=== PATIENT | female | born 1995 | race Caucasian/White ===

== ENCOUNTER 2023-03-28 10:08 | Outpatient (OUT) | payer MEDICAID, SELFPAY ==
--- NOTE | 2023-03-28 10:09 | US_ITS ---
[address] [address] Patient Name: CATINA VELASQUEZ MRN: [id number] date: 1995 Sex: F Assigned Patient Location: [facility] Current Patient Location: [facility] Accession/Order Number: [id number] Exam Date: 03/28/2023 10:10 Report Date: 03/28/2023 10:59 At the request of: KRISHAN CAICEDO Procedure: US OB transvaginal EXAMINATION: US OB transvaginal HISTORY: MISSED MENSES COMPARISON: No relevant comparison available. FINDINGS: GESTATIONAL SAC: Present and normal appearing. YOLK SAC: Present and normal appearing. POLE: Present and normal appearing. CARDIAC: Present. UTERUS: Normal size and appearance. OVARIES: Right: Normal. Left: Normal. CERVIX: 3.6 cm in length and closed. CUL-DE-SAC: Normal. OTHER: None. AGE BY LMP: 11 weeks 1 day DANE BY LMP: 10/16/2023 AGE BY US CRL: 8 weeks 2 days DANE BY US CRL: 11/05/2023 US/US OB transvaginal IMPRESSION: 1. Single live intrauterine . Electronically authenticated by: CHAUNCEY GRESHAM Date: 03/28/2023 10:59
== END 2023-03-28 10:09 | disposition home or self-care (01) ==
LOC: NOMS 10:08
PROVIDERS: Visit Provider Obstetrics & Gynecology
DX: Z34.91 Encounter for supervision of normal pregnancy, unspecified, first trimester (principal); Z3A.08 8 weeks gestation of pregnancy; N92.6 Irregular menstruation, unspecified
CPT/HCPCS: 76817

== ENCOUNTER 2023-04-14 12:53 | Outpatient (OUT) | payer MEDICAID, SELFPAY ==
--- OUTSIDE RECORDS SUMMARY | 2023-04-14 11:27 | XMS_ITS | CCD ---
Author Name Unknown Address [address] [place] [address] Organization [facility] Care Team Providers Care Dishtank Operator Name Role Phone REQUEST, DR NONE LISTED Primary Care Unavaila ble SASCHA, DR NICKERSON Admitting Unavailable SASCHA, DR NICKERSON Consulting Unavailable SASCHA, DR NICKERSON Attending Unavailable ZIEBER, DR CHAUNCEY Persaud Consulting Unavailable SASCHA, DR NICKERSON Admitting Unavailable SASCHA, DR NICKERSON Consulting Unavailable SASCHA, DR NICKERSON Attending Unavailable REQUEST, NONE LISTED Primary Care Unavaila ble Allergies Allergy Classification Reported Allergen(s) Allergy Type Date of Onset Reaction(s) Facility (1 source) Amoxicillin Drug Allergy [facility] Repository (1 source) Corticosteroids Drug allergy (disorder) [facility] Repository (1 source) Penicillin Drug Allergy [facility] Repository (1 source) Probiotic AND Acidophilus Drug allergy (disorder) [facility] Repository Problems Problem Classification Problem Date Documented Date Episodic/Chronic Immunizations and screening for infectious disease (1 source) Encounter for screening for human papillomavirus (HPV); Translations: [ENC SCREENING HUMAN PAPILLOMAVIRUS] Onset: 01-12-2022 Episodic Menstrual disorders (5 sources) Excessive and frequent menstruation with regular cycle; Translations: [Dysmenorrhea, unspecified] Onset: 01-10-2022 Chronic Other screening for suspected conditions (not mental disorders or infectious disease) (4 sources) Encounter for screening for malignant neoplasm of cervix; Translations: [ENC SCREENING MALIG NEOPLASM CERV] Onset: 01-09-2022 Episodic Results Test Name Value Interpretation Reference Range Facility PAP ACOG PANEL 2: 21 to 29on 01-15-2022 . . Normal [facility] Comment on above: Result Comment: Perf ormed at: [facility] Performed By: #### [id number] #### [facility] [address] [place] [address] Dr. So Jorge Age Gdln ACOG Testing 21-29 [facility] Comment on above: Performed By: #### [id number] #### [facility] [address] [place] [address] Dr. So Jorge DIAGNOSIS: Comment [facility] Comment on above: Result Comment: NEGA TIVE FOR INTRAEPITHELIAL LESION OR MALIGNANCY. Performed at: [facility] Performed By: #### [id number] #### [facility] [address] [place] [address] Dr. So Jorge Methodology: Comment [facility] Comment on above: Result Comment: This liquid based ThinPrep(R) pap test was screened with the use of an image guided system. Performed at: [facility] Performed By: #### [id number] #### [facility] [address] [place] [address] Dr. So Jorge Note: Comment [facility] Comment on above: Result Comment: The Pap smear is a screening test designed to aid in the detection of premalignant and malignant conditions of the uterine cervix. It is not a diagnostic procedure and should not be used as the sole means of detecting cervical cancer. Both false-positive and false-negative reports do occur. . Performed at: [facility] Performed By: #### [id number] #### [facility] [address] [place] [address] Dr. So Jorge Performed by: Comment Normal [facility] Comment on above: Result Comment: Nicholas Sladivar, [employer] Craftsman (ASCP) Performed at: [facility] Performed By: #### [id number] #### [facility] [address] [place] [address] Dr. So Jorge Reflex Criteria: Comment [facility] Comment on above: Result Comment: The HPV DNA reflex criteria were not met with this specimen result therefore, no HPV testing was performed. . Performed at: [facility] Performed By: #### [id number] #### [facility] [address] [place] [address] Dr. So Jorge Specimen adequacy: Comment Normal [facility] Comment on above: Result Comment: Sati sfactory for evaluation. Endocervical and/or squamous metaplastic cells (endocervical component) are present. Performed at: [facility] Performed By: #### [id number] #### [facility] [address] [place] [address] Dr. So Jorge US PELVIS AND TRANSVAGon US PELVIS AND TRANSVAG EXAMINATION: US PELVIS AND TRANSVAG HISTORY: Dysmenorrhea COMPARISON: No relevant comparison available. TECHNIQUE: Transabdominal and transvaginal sonographic examination. FINDINGS: UTERUS: Normal size and appearance. Uterus size: 7.0 x 3.9 x 2.9 cm ENDOMETRIUM: Normal homogeneous appearance. Endometrial thickness: 5 mm RIGHT OVARY: Normal size and appearance. Duplex Doppler demonstrates normal waveform and flow; resistive index 0.6. Ovary size: 3.3 x 2.4 x 2.1 cm LEFT OVARY: Normal size and appearance. Duplex Doppler demonstrates normal waveform and flow; resistive index 0.5. Ovary size: 2.9 x 2.9 x 2.0 cm CUL-DE-SAC: Unremarkable. No significant free fluid. BLADDER: Unremarkable. OTHER: None. IMPRESSION: 1. Normal pelvic ultrasound. Electronically authenticated by: CHAUNCEY GRESHAM Date: 2022-01-11 07:14 Normal [facility] CBC AUTO DIFFon 01-10-2022 BASO # 0.1 103/ul Normal 0.0-0.1 [facility] Comment on above: Performed By: #### C BC #### [facility] [address] [place] [address] Dr. So Jorge Basophils/100 WBC (Bld) 0.8 % Normal 0.2-2.0 [facility] Comment on above: Performed By: #### C BC #### [facility] [address] [place] [address] Dr. So Jorge EO # 0.4 103/ul Normal 0.0-0.7 [facility] Comment on above: Performed By: #### C BC #### [facility] [address] [place] [address] Dr. So Jorge Eosinophils/100 WBC (Bld) 7.3 % Critically high 0.9-7.0 [facility] Comment on above: Performed By: #### C BC #### [facility] [address] [place] [address] Dr. So Jorge Erythrocyte distribution width (RBC) [Ratio] 11.9 % Normal 11.0-15.0 [facility] Comment on above: Performed By: #### C BC #### [facility] [address] [place] [address] Dr. So Jorge Hematocrit (Bld) [Volume fraction] 39.5 % Normal 36.0-48.0 [facility] Comment on above: Performed By: #### C BC #### [facility] [address] [place] [address] Dr. So Jorge Hemoglobin (Bld) [Mass/Vol] 12.9 g/dL Normal 12.0-16.0 [facility] Comment on above: Performed By: #### C BC #### [facility] [address] [place] [address] Dr. So Jorge IG # 0.03 10e3/ul Normal 0.00-0.03 [facility] Comment on above: Performed By: #### C BC #### [facility] [address] [place] [address] Dr. So Jorge IG % 0.5 % Normal 0.0-0.5 [facility] Comment on above: Performed By: #### C BC #### [facility] [address] [place] [address] Dr. So Jorge LYMPH # 1.7 103/ul Normal 1.2-3.8 [facility] Comment on above: Performed By: #### C BC #### [facility] [address] [place] [address] Dr. So Jorge Lymphocytes/100 WBC (Bld) 28.6 % Normal 20.5-60.0 [facility] Comment on above: Performed By: #### C BC #### [facility] [address] [place] [address] Dr. So Jorge MANUAL DIFF REQ NO Normal [facility] Comment on above: Performed By: #### C BC #### [facility] [address] [place] [address] Dr. So Jorge MCH (RBC) [Entitic mass] 29.7 pg Normal 26.7-34.0 [facility] Comment on above: Performed By: #### C BC #### [facility] [address] [place] [address] Dr. So Jorge MCHC (RBC) [Mass/Vol] 32.7 g/dL Normal 29.9-35.2 [facility] Comment on above: Performed By: #### C BC #### [facility] [address] [place] [address] Dr. So Jorge MCV (RBC) [Entitic vol] 91.0 fL Normal 81.0-99.0 [facility] Comment on above: Performed By: #### C BC #### [facility] [address] [place] [address] Dr. So Jorge MONO # 0.7 103/ul Normal 0.3-0.8 [facility] Comment on above: Performed By: #### C BC #### [facility] [address] [place] [address] Dr. So Jorge Monocytes/100 WBC (Bld) 11.1 % Normal 1.7-12.0 [facility] Comment on above: Performed By: #### C BC #### [facility] [address] [place] [address] Dr. So Jorge NEUT # 3.1 103/ul Normal 1.4-6.5 [facility] Comment on above: Performed By: #### C BC #### [facility] [address] [place] [address] Dr. So Jorge Neutrophils/100 WBC (Bld) 51.7 % Normal 43.0-75.0 [facility] Comment on above: Performed By: #### C BC #### [facility] [address] [place] [address] Dr. So Jorge Platelet mean volume (Bld) [Entitic vol] 10.0 fL Normal 9.5-13.5 [facility] Comment on above: Performed By: #### C BC #### [facility] [address] [place] [address] Dr. So Jorge PLT 328 103/ul Normal 150-450 [facility] Comment on above: Performed By: #### C BC #### [facility] [address] [place] [address] Dr. So Jorge RBC 4.34 106/ul Normal 4.20-5.40 [facility] Comment on above: Performed By: #### C BC #### [facility] [address] [place] [address] Dr. So Jorge WBC 6.1 103/ul Normal 4.0-11.0 [facility] Comment on above: Performed By: #### C BC #### [facility] [address] [place] [address] Dr. So Jorge FREE T4on 01-10-2022 Free T4 [Mass/Vol] 0.86 ng/dL Normal 0.76-1.46 [facility] Comment on above: Performed By: #### F T4 #### [facility] [address] [place] [address] Dr. So Jorge GLYCOHEMOGLOBIN A1Con 2021 ADA RECOMMENDATION SEE BELOW Normal [facility] Comment on above: Result Comment: ADA RECOMMENDED LIMIT 4.0 - 6.0 ADA THERAPEUTIC TARGET < 7.0 ACTION SUGGESTED > 7.0 Performed By: #### A 1C #### [facility] [address] [place] [address] Dr. So Jorge Glucose [Mass/Vol] 103 mg/dL Normal [facility] Comment on above: Performed By: #### A 1C #### [facility] [address] [place] [address] Dr. So Jorge HbA1c (Bld) [Mass fraction] 5.2 % Normal 4.5-6.2 [facility] Comment on above: Performed By: #### A 1C #### [facility] [address] [place] [address] Dr. So Jorge PROTIMEon 01-10-2022 INR Coag (PPP) [Relative time] 0.98 {INR} Normal [facility] Comment on above: Performed By: #### P TT, PT #### [facility] [address] [place] [address] Dr. So Jorge INR GUIDELINES SEE BELOW Normal [facility] Comment on above: Result Comment: JESUS RED INR: 2.0 - 3.0 CONDITIONS NOT LISTED BELOW 2.5 - 3.5 FOR PROSTHETIC HEART VALVE REPLACEMENT 2.5 - 3.5 RECURRENT THROMBOSIS Performed By: #### P TT, PT #### [facility] [address] [place] [address] Dr. So Jorge PT Coag (PPP) [Time] 10.6 s Normal 9.0-11.6 [facility] Comment on above: Performed By: #### P TT, PT #### [facility] [address] [place] [address] Dr. So Jorge PTTon 01-10-2022 aPTT Coag (Bld) [Time] 29.6 s Normal 22.3-36.2 [facility] Comment on above: Performed By: #### P TT, PT #### [facility] [address] [place] [address] Dr. So Jorge TSHon 01-10-2022 TSH 0.724 uIU/mL Normal 0.358-3.740 [facility] Comment on above: Performed By: #### T SH #### [facility] [address] [place] [address] Dr. So Jorge Encounters Encounter Date Encounter Type Care Provider Facility Start: 03-28-2023 End: 03-28-2023 ambulatory Not Available Start: 01-10-2022 End: 01-11-[address] NONE LISTED REQUEST Facility: Start: 01-09-2022 End: 01-09-[address] KRISHAN CAICEDO Facility: Payers Date Payer Category Payer Medicaid [id number] 1995 Unknown [id number] 1995 Unknown [id number] 1995 Unknown [id number] 1958 Unknown [id number] Summary Purpose Family History No Family History Records FoundNo Family History Records Found Advance Directives No Advanced Directives Records FoundNo Advanced Directives Records Found Additional Source Comments INFORMATION SOURCE (unrecogn ized section and content) DATE CREATED AUTHOR 01/18/2022 [facility] DATE CREATED AUTHOR AUTHOR'S POLLY ATROMA 03/30/2023 [facility] FOR RECORDS PERTAINING TO PATIENTS WHO ARE OR HAVE BEEN ENROLLED IN A CHEMICAL DEPENDENCY/SUBSTANCEABUSE PROGRAM, SOME INFORMATION MAY BE OMITTED. This clinical summary was aggregated from multiple sources. Caution should be exercised in using it in the provision of clinical care. This summary normalizes information from multiple sources, and as a consequence, information in this document may materially change the coding, format and clinical context of patient data. In addition, data may be omitted in some cases. CLINICAL DECISIONS SHOULD BE BASED ON THE PRIMARY CLINICAL RECORDS. [facility] [employer] provides no warranty or guarantee of the accuracy or completeness of information in this document.
[2023-04-14 13:25] LABS: Basophils Percent Auto 0.3 % (0.2-2.0); Eosinophils Absolute Auto 0.1 10^3/uL (0.0-0.7); Hematocrit 32.6 % (36.0-48.0); Hemoglobin 10.7 g/dL (12.0-16.0); Immature Granulocytes Abs Auto 0.03 10^3/uL (0.00-0.03); Immature Granulocytes Pct Auto 0.2 % (0.0-0.5); Lymphocytes Absolute Auto 2.2 10^3/uL (1.2-3.8); Lymphocytes Percent Auto 17.2 % (20.5-60.0); Mean Corpuscular HGB Conc 32.8 g/dL (29.9-35.2); Mean Corpuscular Hemoglobin 29.9 pg (26.7-34.0); Mean Corpuscular Volume 91.1 fL (81.0-99.0); Mean Platelet Volume 10.1 fL (9.5-13.5); Monocytes Absolute Auto 0.9 10^3/uL (0.3-0.8); Monocytes Percent Auto 7.1 % (1.7-12.0); Neutrophils Absolute Auto 9.5 10^3/uL (1.4-6.5); Neutrophils Percent Auto 74.2 % (43.0-75.0); Platelet Count 277 10^3/uL (150-450); Red Blood Count 3.58 10^6/uL (4.20-5.40); Red Cell Distribution Width 12.9 % (11.0-15.0); White Blood Count 12.8 10^3/uL (4.0-11.0)
[2023-04-14 15:11] LABS: Estimated Average Glucose 100 mg/dL; Glycohemoglobin A1C 5.1 % (4.5-6.2)
[2023-04-15 07:08] LABS: HCV Ab Non Reactive (Non Reactive); Rubella Antibodies, IgG 3.31 index (Immune >0.99)
[2023-04-15 08:12] LABS: HIV Ab/p24 Ag Screen Non Reactive (Non Reactive)
[2023-04-15 13:09] LABS: HBsAg Screen Negative (Negative); Rapid Plasma Reagin, Quant Non Reactive titer (NonRea<1:1)
== END 2023-04-14 12:54 | disposition home or self-care (01) ==
LOC: LAB 12:53
PROVIDERS: Visit Provider Obstetrics & Gynecology
DX: Z36.0 Encounter for antenatal screening for chromosomal anomalies (principal); N92.6 Irregular menstruation, unspecified
CPT/HCPCS: 36415; 83036; 85025; 86592; 86762; 86803; 86850; 86900; 86901; 87086; 87340; 87389

== ENCOUNTER 2023-04-17 19:40 | Outpatient (REF) | payer MEDICAID, SELFPAY ==
--- OUTSIDE RECORDS SUMMARY | 2023-04-17 19:44 | XMS_ITS | CCD ---
Author Name Unknown Address [address] [place] [address] Organization [facility] Care Team Providers Care Roadway Engineer Name Role Phone REQUEST, DR NONE LISTED Primary Care Unavaila ble SSACHA, DR NICKERSON Admitting Unavailable SASCHA, DR NICKERSON Consulting Unavailable SASCHA, DR NICKERSON Attending Unavailable ZIEBER, DR CHAUNCEY Persaud Consulting Unavailable SASCHA, DR NICKERSON Admitting Unavailable SASCHA, DR NICKERSON Consulting Unavailable SASCHA, DR NICKERSON Attending Unavailable REQUEST, NONE LISTED Primary Care Unavaila ble Allergies Allergy Classification Reported Allergen(s) Allergy Type Date of Onset Reaction(s) Facility (1 source) Amoxicillin Drug Allergy [facility] Repository (1 source) Corticosteroids Drug allergy (disorder) [facility] (1 source) Penicillin Drug Allergy [facility] (1 source) Probiotic AND Acidophilus Drug allergy (disorder) [facility] Problems Problem Classification Problem Date Documented [...] to 29on 01-15-2022 . . Normal [facility] Comment on above: Result Comment: Perf ormed at: [facility] Performed By: #### [id number] #### [facility] [address] [place] [address] Dr. So Jorge Age Gdln ACOG Testing 21-29 [facility] Comment on above: Performed By: #### [id number] #### [facility] [address] [place] [address] Dr. So Jorge DIAGNOSIS: Comment [facility] Comment on above: Result Comment: NEGA TIVE FOR INTRAEPITHELIAL LESION OR MALIGNANCY. Performed at: [facility] Performed By: #### [id number] #### [facility] [address] [place] [address] Dr. So Jorge Methodology: Comment [facility] Comment on above: Result Comment: This liquid based ThinPrep(R) pap test was screened with the use of an image guided system. Performed at: [facility] Performed By: #### [id number] #### [facility] [address] [place] [address] Dr. So Jorge Note: Comment [facility] Comment on above: Result Comment: The Pap smear is a screening test designed to aid in the detection of premalignant and malignant conditions of the uterine cervix. It is not a diagnostic procedure and should not be used as the sole means of detecting cervical cancer. Both false-positive and false-negative reports do occur. . Performed at: [facility] Performed By: #### [id number] #### [facility] [address] [place] [address] Dr. So Jorge Performed by: Comment Normal [facility] Comment on above: Result Comment: Nicholas Saldivar, Egg Processing Supervisor (ASCP) Performed at: [facility] Performed By: #### [id number] #### [facility] [address] [place] [address] Dr. So Jorge Reflex Criteria: Comment [facility] Comment on above: Result Comment: The HPV DNA reflex criteria were not met with this specimen result therefore, no HPV testing was performed. . Performed at: [facility] Performed By: #### [id number] #### [facility] [address] [place] [address] Dr. So Jorge Specimen adequacy: Comment Normal [facility] Comment on above: Result Comment: Sati sfactory for evaluation. Endocervical and/or squamous metaplastic cells (endocervical component) are present. Performed at: [facility] Performed By: #### [id number] #### [facility] [address] [place] [address] Dr. So Jorge US PELVIS AND TRANSVAGon [...] by: CHAUNCEY GRESHAM Date: 2022-01-11 07:14 Normal [facility] CBC AUTO DIFFon 01-10-2022 BASO # 0.1 103/ul Normal 0.0-0.1 [facility] Comment on above: Performed By: #### C BC #### [facility] [address] [place] [address] Dr. So Jorge Basophils/100 WBC (Bld) 0.8 % Normal 0.2-2.0 [facility] Comment on above: Performed By: #### C BC #### [facility] [address] [place] [address] Dr. So Jorge EO # 0.4 103/ul Normal 0.0-0.7 [facility] Comment on above: Performed By: #### C BC #### [facility] [address] [place] [address] Dr. So Jorge Eosinophils/100 WBC (Bld) 7.3 % Critically high 0.9-7.0 [facility] Comment on above: Performed By: #### C BC #### [facility] [address] [place] [address] Dr. So Jorge Erythrocyte distribution width (RBC) [Ratio] 11.9 % Normal 11.0-15.0 [facility] Comment on above: Performed By: #### C BC #### [facility] [address] [place] [address] Dr. So Jorge Hematocrit (Bld) [Volume fraction] 39.5 % Normal 36.0-48.0 [facility] Comment on above: Performed By: #### C BC #### [facility] [address] [place] [address] Dr. So Jorge Hemoglobin (Bld) [Mass/Vol] 12.9 g/dL Normal 12.0-16.0 [facility] Comment on above: Performed By: #### C BC #### [facility] [address] [place] [address] Dr. So Jorge IG # 0.03 10e3/ul Normal 0.00-0.03 [facility] Comment on above: Performed By: #### C BC #### [facility] [address] [place] [address] Dr. So Jorge IG % 0.5 % Normal 0.0-0.5 [facility] Comment on above: Performed By: #### C BC #### [facility] [address] [place] [address] Dr. So Jorge LYMPH # 1.7 103/ul Normal 1.2-3.8 [facility] Comment on above: Performed By: #### C BC #### [facility] [address] [place] [address] Dr. So Jorge Lymphocytes/100 WBC (Bld) 28.6 % Normal 20.5-60.0 [facility] Comment on above: Performed By: #### C BC #### [facility] [address] [place] [address] Dr. So Jorge MANUAL DIFF REQ NO Normal [facility] Comment on above: Performed By: #### C BC #### [facility] [address] [place] [address] Dr. So Jorge MCH (RBC) [Entitic mass] 29.7 pg Normal 26.7-34.0 [facility] Comment on above: Performed By: #### C BC #### [facility] [address] [place] [address] Dr. So Jorge MCHC (RBC) [Mass/Vol] 32.7 g/dL Normal 29.9-35.2 [facility] Comment on above: Performed By: #### C BC #### [facility] [address] [place] [address] Dr. So Jorge MCV (RBC) [Entitic vol] 91.0 fL Normal 81.0-99.0 [facility] Comment on above: Performed By: #### C BC #### [facility] [address] [place] [address] Dr. So Jorge MONO # 0.7 103/ul Normal 0.3-0.8 [facility] Comment on above: Performed By: #### C BC #### [facility] [address] [place] [address] Dr. So Jorge Monocytes/100 WBC (Bld) 11.1 % Normal 1.7-12.0 [facility] Comment on above: Performed By: #### C BC #### [facility] [address] [place] [address] Dr. So Jorge NEUT # 3.1 103/ul Normal 1.4-6.5 [facility] Comment on above: Performed By: #### C BC #### [facility] [address] [place] [address] Dr. So Jorge Neutrophils/100 WBC (Bld) 51.7 % Normal 43.0-75.0 [facility] Comment on above: Performed By: #### C BC #### [facility] [address] [place] [address] Dr. So Jorge Platelet mean volume (Bld) [Entitic vol] 10.0 fL Normal 9.5-13.5 [facility] Comment on above: Performed By: #### C BC #### [facility] [address] [place] [address] Dr. So Jorge PLT 328 103/ul Normal 150-450 [facility] Comment on above: Performed By: #### C BC #### [facility] [address] [place] [address] Dr. So Jorge RBC 4.34 106/ul Normal 4.20-5.40 [facility] Comment on above: Performed By: #### C BC #### [facility] [address] [place] [address] Dr. So Jorge WBC 6.1 103/ul Normal 4.0-11.0 [facility] Comment on above: Performed By: #### C BC #### [facility] [address] [place] [address] Dr. So Jorge FREE T4on 01-10-2022 Free T4 [Mass/Vol] 0.86 ng/dL Normal 0.76-1.46 [facility] Comment on above: Performed By: #### F T4 #### [facility] [address] [place] [address] Dr. So Jorge GLYCOHEMOGLOBIN A1Con 2021 ADA RECOMMENDATION SEE BELOW Normal [facility] Comment on above: Result Comment: ADA RECOMMENDED LIMIT 4.0 - 6.0 ADA THERAPEUTIC TARGET < 7.0 ACTION SUGGESTED > 7.0 Performed By: #### A 1C #### [facility] [address] [place] [address] Dr. So Jorge Glucose [Mass/Vol] 103 mg/dL Normal [facility] Comment on above: Performed By: #### A 1C #### [facility] [address] [place] [address] Dr. So Jorge HbA1c (Bld) [Mass fraction] 5.2 % Normal 4.5-6.2 [facility] Comment on above: Performed By: #### A 1C #### [facility] [address] [place] [address] Dr. So Jorge PROTIMEon 01-10-2022 INR Coag (PPP) [Relative time] 0.98 {INR} Normal [facility] Comment on above: Performed By: #### P TT, PT #### [facility] [address] [place] [address] Dr. So Jorge INR GUIDELINES SEE BELOW Normal [facility] Comment on above: Result Comment: JESUS RED INR: 2.0 - 3.0 CONDITIONS NOT LISTED BELOW 2.5 - 3.5 FOR PROSTHETIC HEART VALVE REPLACEMENT 2.5 - 3.5 RECURRENT THROMBOSIS Performed By: #### P TT, PT #### [facility] [address] [place] [address] Dr. So Jorge PT Coag (PPP) [Time] 10.6 s Normal 9.0-11.6 [facility] Comment on above: Performed By: #### P TT, PT #### [facility] [address] [place] [address] Dr. So Jorge PTTon 01-10-2022 aPTT Coag (Bld) [Time] 29.6 s Normal 22.3-36.2 [facility] Comment on above: Performed By: #### P TT, PT #### [facility] [address] [place] [address] Dr. So Jorge TSHon 01-10-2022 TSH 0.724 uIU/mL Normal 0.358-3.740 [facility] Comment on above: Performed By: #### T SH #### [facility] [address] [place] [address] Dr. So Jorge Encounters Encounter Date Encounter Type Care Provider Facility Start: 03-28-2023 End: 03-28-2023 ambulatory Not Available Start: 01-10-2022 End: 01-11-[address] NONE LISTED REQUEST Facility: Start: 01-09-2022 End: 01-09-[address] KRISHAN CAICEDO Facility: Payers Date Payer Category Payer Medicaid [id number] 1995 Unknown [id number] 1995 Unknown [id number] 1996 Unknown [id number] 1959 Unknown [id number] Summary Purpose Family History No Family History Records FoundNo Family History Records Found Advance Directives No Advanced Directives Records FoundNo Advanced Directives Records Found Additional Source Comments INFORMATION SOURCE (unrecogn ized section and content) DATE CREATED AUTHOR 01/18/2022 [facility] DATE CREATED AUTHOR AUTHOR'S POLLY ATROMA 03/30/2023 [facility] FOR RECORDS PERTAINING TO PATIENTS WHO [...] BE BASED ON THE PRIMARY CLINICAL RECORDS. [facility] [employer] provides no warranty or guarantee of the accuracy or completeness of information in this document.
[2023-04-22 15:08] LABS: Age Gdln ACOG Testing Note (.); IGP, rfx Aptima HPV ASCU Note (.)
== END 2023-04-17 19:41 | disposition home or self-care (01) ==
LOC: LAB 19:40
PROVIDERS: Visit Provider Obstetrics & Gynecology
DX: Z01.419 Encounter for gynecological examination (general) (routine) without abnormal findings (principal)
CPT/HCPCS: G0145

== ENCOUNTER 2023-04-21 06:30 | Outpatient (REF) | payer BC, SELFPAY ==
--- OUTSIDE RECORDS SUMMARY | 2023-04-23 10:03 | XMS_ITS | CCD ---
Author Name Unknown Address [address] [place] [address] Organization [facility] Care Team Providers [employer] Principal Name Role Phone REQUEST, DR NONE LISTED Primary Care Unavaila ble SASCHA, DR NICKERSON Admitting Unavailable SASCHA, DR NICKERSON Consulting Unavailable SASCHA, DR NICKERSON Attending Unavailable ZIEBER, DR CHAUNCEY Persaud Consulting Unavailable SASCHA, DR NICKERSON Admitting Unavailable SASCHA, DR NICKERSON Consulting Unavailable SASCHA, DR NICKERSON Attending Unavailable REQUEST, NONE LISTED Primary Care Unavaila ble NO PCP, NO PCP Primary Care Unavailable GOSIA WOODARD Attending Unavailable SASCHAKRISHAN Attending Unavailable SASCHA, KRISHAN Attending Unavailable Allergies Allergy Classification Reported Allergen(s) Allergy Type Date of Onset Reaction(s) Facility (2 sources) Amoxicillin; Translations: [AMOXICILLIN] Drug Allergy 3 [facility] (1 source) Corticosteroids Drug allergy (disorder) [facility] (1 source) Penicillin Drug Allergy [facility] (1 source) Probiotic AND Acidophilus Drug allergy (disorder) [facility] (1 source) Penicillins; Translations: [PENICILLINS] Propensity to adverse reactions to drug (disorder) [facility] (1 source) predniSONE; Translations: [PREDNISONE] Drug Allergy 8 [facility] Problems Problem Classification Problem Date Documented Date Episodic/Chronic Hemorrhage during ; abruptio placenta; placenta previa (2 sources) Threatened ; Translations: [Antepartum hemorrhage, unspecified, unspecified trimester] Onset: 04-19-2023 Episodic Immunizations and screening for infectious disease (1 [...] SCREENING MALIG NEOPLASM CERV] Onset: 01-09-2022 Episodic Unclassified (1 source) Vaginal Bleeding - Onset: 04-19-2023 Unclassified (1 source) Vaginal Bleeding & Clotting - 11 wks Onset: 04-19-2023 Results Test Name Value Interpretation Reference Range Facility CBC AND AUTO DIFFon 04-19-19 ABSOLUTE BASOPHIL 0.0 X10E9/L Normal 0.0-0.2 [facility] Comment on above: Performed By: #### C ISABEL ELIZONDO, #### [facility] ([id number]) [address] [place] [address] 19054 ABSOLUTE NEUTROPHIL 11.0 X10E9/L High 1.5-6.6 [facility] Comment on above: Performed By: #### Nerissa ELIZONDO CMP, #### [facility] ([id number]) [address] [place] [address] 77886 Basophils/100 WBC (Bld) 0.3 % Normal [facility] Comment on above: Performed By: #### Nerissa ELIZONDO CMP, #### [facility] ([id number]) [address] [place] [address] 98080 Eosinophils (Bld) [#/Vol] 0.1 10*3/uL Normal 0.0-0.4 [facility] Comment on above: Performed By: #### Nerissa ELIZONDO CMP, #### [facility] ([id number]) [address] [place] [address] 56431 Eosinophils/100 WBC (Bld) 0.5 % Normal [facility] Comment on above: Performed By: #### C CARO, CMP, #### [facility] ([id number]) [address] [place] [address] 52540 Erythrocyte distribution width (RBC) [Ratio] 13.3 % Normal 11.5-15.0 [facility] Comment on above: Performed By: #### Nerissa ELIZONDO CMP, #### [facility] ([id number]) [address] [place] [address] 15117 Hematocrit (Bld) [Volume fraction] 31.9 % Low 35-47 [facility] Comment on above: Performed By: #### Nerissa ELIZONDO CMP, #### [facility] ([id number]) [address] [place] [address] 61452 Hemoglobin (Bld) [Mass/Vol] 11.0 g/dL Low 11.7-15.5 [facility] Comment on above: Performed By: #### Nerissa ELIZONDO [facility], #### [facility] ([id number]) [address] [place] [address] 15023 Lymphocytes (Bld) [#/Vol] 1.7 10*3/uL Normal 1.0-3.5 [facility] Comment on above: Performed By: #### Nerissa ELIZONDO CMP, #### [facility] ([id number]) [address] [place] [address] 81943 Lymphocytes/100 WBC (Bld) 12.1 % Normal [facility] Comment on above: Performed By: #### Nerissa ELIZONDO CMP, #### [facility] ([id number]) [address] [place] [address] 87667 MCH (RBC) [Entitic mass] 30.0 pg Normal 27-34 [facility] Comment on above: Performed By: #### Nerissa ELIZONDO CMP, #### [facility] ([id number]) [address] [place] [address] [place] [address] MCHC (RBC) [Mass/Vol] 34.4 g/dL Normal 32-36 [facility] Comment on above: Performed By: #### Nerissa ELIZONDO CMP, #### [facility] ([id number]) [address] [place] [address] 41989 MCV (RBC) [Entitic vol] 87 fL Normal 80-100 [facility] Comment on above: Performed By: #### Nerissa ELIZONDO CMP, #### [facility] ([id number]) [address] [place] [address] 28532 Monocytes (Bld) [#/Vol] 1.5 10*3/uL High 0-0.9 [facility] Comment on above: Performed By: #### Nerissa ELIZONDO CMP, #### [facility] ([id number]) [address] [place] [address] 85899 Monocytes/100 WBC (Bld) 10.3 % Normal [facility] Comment on above: Performed By: #### Nerissa ELIZONDO [facility], #### [facility] ([id number]) [address] [place] [address] 15518 Neutrophils/100 WBC (Bld) 76.8 % Normal [facility] Comment on above: Performed By: #### Nerissa ELIZONDO CMP, #### [facility] ([id number]) [address] [place] [address] 68586 Platelet mean volume (Bld) [Entitic vol] 8.0 fL Normal 7-12 [facility] Comment on above: Performed By: #### Nerissa ELIZONDO CMP, #### [facility] ([id number]) [address] [place] [address] 84722 Platelets (Bld) [#/Vol] 278 10*3/uL Normal 150-450 [facility] Comment on above: Performed By: #### C CARO, CMP, #### [facility] ([id number]) [address] [place] [address] 87275 RBC COUNT 3.65 X10E12/L Low 3.80-5.20 [facility] Comment on above: Performed By: #### C CARO, CMP, #### [facility] ([id number]) [address] [place] [address] 32234 WBC (Bld) [#/Vol] 14.3 10*3/uL High 4.0-11.0 [facility] Comment on above: Performed By: #### C CARO, CMP, #### [facility] ([id number]) [address] [place] [address] 38112 COMPREHENSIVE METABOLIC PANE Iker 04-19-2023 Albumin [Mass/Vol] 3.5 g/dL Normal 3.2-5.3 [facility] Comment on above: Performed By: #### C CARO, CMP, #### [facility] ([id number]) [address] [place] [address] 97055 ALP [Catalytic activity/Vol] 69 U/L Normal 39-130 [facility] Comment on above: Performed By: #### C BCA, CMP, #### [facility] ([id number]) [address] [place] [address] 07250 ALT [Catalytic activity/Vol] 9 U/L Normal 0-31 [facility] Comment on above: Performed By: #### C BCA, CMP, #### [facility] ([id number]) [address] [place] [address] 60531 Anion gap [Moles/Vol] 3 mmol/L Low 5-15 [facility] Comment on above: Performed By: #### C BCA, CMP, #### [facility] ([id number]) [address] [place] [address] 49714 AST [Catalytic activity/Vol] 14 U/L Normal 0-41 [facility] Comment on above: Performed By: #### C BCA, CMP, #### [facility] ([id number]) [address] [place] [address] [place] [address] Bilirubin [Mass/Vol] mg/dL Low 0.3-1.2 [facility] Comment on above: Performed By: #### C BCA, CMP, #### [facility] ([id number]) [address] [place] [address] 89477 Calcium [Mass/Vol] 8.4 mg/dL Low 8.5-10.5 [facility] Comment on above: Performed By: #### C BCA, CMP, #### [facility] ([id number]) [address] [place] [address] 59284 Chloride [Moles/Vol] 101 mmol/L Normal 98-109 [facility] Comment on above: Performed By: #### C BCA, CMP, #### [facility] ([id number]) [address] [place] [address] 74377 CO2 [Moles/Vol] 26 mmol/L Normal 22-32 [facility] Comment on above: Performed By: #### C BCA, CMP, #### [facility] ([id number]) [address] [place] [address] 05695 Creatinine [Mass/Vol] 0.62 mg/dL Normal 0.40-1.00 [facility] Comment on above: Result Comment: METH OD TRACEABLE TO IDMS STANDARD Performed By: #### C BCA, CMP, #### [facility] ([id number]) [address] [place] [address] 89959 eGFR (CKD-EPI) NON-RACE DEPENDENT >90 Normal >59 [facility] Comment on above: Result Comment: Reported eGFR is based on the CKD-EPI 2020 equation that does not use a race coefficient. Performed By: #### C ISABEL ELIZONDO, #### [facility] ([id number]) [address] [place] [address] 19703 Glucose [Mass/Vol] 96 mg/dL Normal 65-99 [facility] Comment on above: Performed By: #### C ISABEL ELIZONDO, #### [facility] ([id number]) [address] [place] [address] 67104 Potassium [Moles/Vol] 3.2 mmol/L Low 3.5-5.0 [facility] Comment on above: Performed By: #### C ISABEL ELIZONDO, #### [facility] ([id number]) [address] [place] [address] 22695 Protein [Mass/Vol] 7.3 g/dL Normal 6.0-8.0 [facility] Comment on above: Performed By: #### C CARO CMP, #### [facility] ([id number]) [address] [place] [address] 70265 Sodium [Moles/Vol] 130 mmol/L Low 134-146 [facility] Comment on above: Performed By: #### C CARO CMP, #### [facility] ([id number]) [address] [place] [address] 12183 Urea nitrogen [Mass/Vol] 9 mg/dL Normal 5-23 [facility] Comment on above: Performed By: #### C BCA, CMP, #### [facility] ([id number]) [address] [place] [address] 18373 HCG.beta subunit IA 3rd IS Q non 04-19-2023 [place] [address] m[IU]/mL Normal P [facility] Comment on above: Result Comment: NEW REFERENCE RANGE WEEKS (SINCE LMP) MIU/mL 3 WEEKS 5 - 50 4 WEEKS 5 - 426 5 WEEKS 18 - 7,340 6 WEEKS 1,080 - 56,500 7-8 WEEKS 7,650 - 229,000 9-12 WEEKS 25,700 - 288,000 13-16 WEEKS 13,300 - 254,000 17-24 WEEKS 4,060 - 165,400 25-40 WEEKS 3,640 - 117,000 MALES AND NON- FEMALES - <5 MIU/mL This test has been FDA approved for use in only. Elevated levels are not necessarily diagnostic for trophoblastic or nontrophoblastic neoplasms. Performed By: #### C BCA, [facility], [id number] #### [facility] ([id number]) [address] [place] [address] 31996 URN MACROSCOPIC NURon 2023 BILIRUBIN MATTHEW Negative Normal NEG [facility] Comment on above: Performed By: #### N UM #### [facility] ([id number]) [address] [place] [address] 01414 BLOOD/HGB MATTHEW Trace Abnormal NEG [facility] Comment on above: Performed By: #### N UM #### [facility] ([id number]) [address] [place] [address] 82488 GLUCOSE MATTHEW Negative Normal NEG [facility] Comment on above: Performed By: #### N UM #### [facility] ([id number]) [address] [place] [address] 80513 KETONES MATTHEW Negative Normal NEG [facility] Comment on above: Performed By: #### N UM #### [facility] ([id number]) [address] [place] [address] 11729 LEUKOCYTE ESTERASE MATTHEW Negative Normal NEG [facility] Comment on above: Performed By: #### N UM #### [facility] ([id number]) [address] [place] [address] 16905 NITRITE MATTHEW Negative Normal NEG [facility] Comment on above: Performed By: #### N UM #### [facility] ([id number]) [address] [place] [address] 56266 PH MATTHEW 6.0 Normal 5.0-8.5 [facility] Comment on above: Performed By: #### N UM #### [facility] ([id number]) [address] [place] [address] 74855 PROTEIN MATTHEW Negative Normal NEG [facility] Comment on above: Performed By: #### N UM #### [facility] ([id number]) [address] [place] [address] 66158 SPECIFIC GRAVITY MATTHEW >=1.030 Normal 1.003-1.035 [facility] Comment on above: Performed By: #### N UM #### [facility] ([id number]) [address] [place] [address] 96509 UROBILINOGEN MATTHEW 1.0 eu/dL Normal <1.1 [facility] Comment on above: Performed By: #### N UM #### [facility] ([id number]) [address] [place] [address] 06299 PAP ACOG PANEL 2: 21 to 29on 01-15-2022 . . [facility] Comment on above: Result Comment: Perf ormed at: [facility] Performed By: #### [id number] #### [facility] [address] [place] [address] Dr. So Jorge Age Gdln ACOG Testing - [facility] Comment on above: Performed By: #### [id number] #### [facility] [address] [place] [address] Dr. So Jorge DIAGNOSIS: Comment Normal [facility] Comment on above: Result Comment: NEGA TIVE FOR INTRAEPITHELIAL LESION OR MALIGNANCY. Performed at: [facility] Performed By: #### [id number] #### [facility] [address] [place] [address] Dr. So Jorge Methodology: Comment Normal [facility] Comment on above: Result Comment: This liquid based ThinPrep(R) pap test was screened with the use of an image guided system. Performed at: [facility] Performed By: #### [id number] #### [facility] [address] [place] [address] Dr. So Jorge Note: Comment Normal [facility] Comment on above: Result Comment: The Pap smear is a screening test designed to aid in the detection of premalignant and malignant conditions of the uterine cervix. It is not a diagnostic procedure and should not be used as the sole means of detecting cervical cancer. Both false-positive and false-negative reports do occur. . Performed at: [facility] Performed By: #### [id number] #### [facility] [address] [place] [address] Dr. So Jorge Performed by: Comment Normal [facility] Comment on above: Result Comment: Nicholas Saldivar, Database Consultant (ASCP) Performed at: [facility] Performed By: #### [id number] #### [facility] [address] [place] [address] Dr. So Jorge Reflex Criteria: Comment Normal [facility] Comment on above: Result Comment: The HPV DNA reflex criteria were not met with this specimen result therefore, no HPV testing was performed. . Performed at: [facility] Performed By: #### [id number] #### [facility] [address] [place] [address] Dr. So Jorge Specimen adequacy: Comment Normal [facility] Comment on above: Result Comment: Sati sfactory for evaluation. Endocervical and/or squamous metaplastic cells (endocervical component) are present. Performed at: [facility] Performed By: #### [id number] #### [facility] [address] [place] [address] Dr. So Jorge US PELVIS AND TRANSVAGon [...] by: CHAUNCEY GRESHAM Date: 2022-01-11 07:14 Normal [facility] CBC AUTO DIFFon 01-10-2022 BASO # 0.1 103/ul Normal 0.0-0.1 [facility] Comment on above: Performed By: #### C BC #### [facility] [address] [place] [address] Dr. So Jorge Basophils/100 WBC (Bld) 0.8 % Normal 0.2-2.0 [facility] Comment on above: Performed By: #### C BC #### [facility] [address] [place] [address] Dr. So Jorge EO # 0.4 103/ul Normal 0.0-0.[address] [facility] Comment on above: Performed By: #### C BC #### [facility] [address] [place] [address] Dr. So Jorge Eosinophils/100 WBC (Bld) 7.3 % Critically high 0.9-7.[address] [facility] Comment on above: Performed By: #### C BC #### [facility] [address] [place] [address] Dr. So Jorge Erythrocyte distribution width (RBC) [Ratio] 11.9 % Normal 11.0-15.[address] [facility] Comment on above: Performed By: #### C BC #### [facility] [address] [place] [address] Dr. So Jorge Hematocrit (Bld) [Volume fraction] 39.5 % Normal 36.0-48.[address] [facility] Comment on above: Performed By: #### C BC #### [facility] [address] [place] [address] Dr. So Jorge Hemoglobin (Bld) [Mass/Vol] 12.9 g/dL Normal 12.0-16.0 [facility] Comment on above: Performed By: #### C BC #### [facility] [address] [place] [address] Dr. So Jorge IG # 0.03 10e3/ul Normal 0.00-0.[address] [facility] Comment on above: Performed By: #### C BC #### [facility] [address] [place] [address] Dr. So Jorge IG % 0.5 % Normal 0.0-0.[address] [facility] Comment on above: Performed By: #### C BC #### [facility] [address] [place] [address] Dr. So Jorge LYMPH # 1.7 103/ul Normal 1.2-3.8 [facility] Comment on above: Performed By: #### C BC #### [facility] [address] [place] [address] Dr. oS Jorge Lymphocytes/100 WBC (Bld) 28.6 % Normal 20.5-60.0 [facility] Comment on above: Performed By: #### C BC #### [facility] [address] [place] [address] Dr. So Jorge MANUAL DIFF REQ NO Normal [facility] Comment on above: Performed By: #### C BC #### [facility] [address] [place] [address] Dr. So Jorge MCH (RBC) [Entitic mass] 29.7 pg Normal 26.7-34.[address] [facility] Comment on above: Performed By: #### C BC #### [facility] [address] [place] [address] Dr. So Jorge MCHC (RBC) [Mass/Vol] 32.7 g/dL Normal 29.9-35.2 [facility] Comment on above: Performed By: #### C BC #### [facility] [address] [place] [address] Dr. So Jorge MCV (RBC) [Entitic vol] 91.0 fL Normal 81.0-99.[address] [facility] Comment on above: Performed By: #### C BC #### [facility] [address] [place] [address] Dr. So Jorge MONO # 0.7 103/ul Normal 0.3-0.[address] [facility] Comment on above: Performed By: #### C BC #### [facility] [address] [place] [address] Dr. So Jorge Monocytes/100 WBC (Bld) 11.1 % Normal 1.7-12.[address] [facility] Comment on above: Performed By: #### C BC #### [facility] [address] [place] [address] Dr. So Jorge NEUT # 3.1 103/ul Normal 1.4-6.[address] [facility] Comment on above: Performed By: #### C BC #### [facility] [address] [place] [address] Dr. So Jorge Neutrophils/100 WBC (Bld) 51.7 % Normal 43.0-75.0 [facility] Comment on above: Performed By: #### C BC #### [facility] [address] [place] [address] Dr. So Jorge Platelet mean volume (Bld) [Entitic vol] 10.0 fL Normal 9.5-13.[address] [facility] Comment on above: Performed By: #### C BC #### [facility] [address] [place] [address] Dr. So Jorge PLT 328 103/ul Normal 150-[address] [facility] Comment on above: Performed By: #### C BC #### [facility] [address] [place] [address] Dr. So Jorge RBC 4.34 106/ul Normal 4.20-5.[address] [facility] Comment on above: Performed By: #### C BC #### [facility] [address] [place] [address] Dr. So Jorge WBC 6.1 103/ul Normal 4.0-11.[address] [facility] Comment on above: Performed By: #### C BC #### [facility] [address] [place] [address] Dr. So Jorge FREE T4on 01-10-2022 Free T4 [Mass/Vol] 0.86 ng/dL Normal 0.76-1.46 [facility] Comment on above: Performed By: #### F T4 #### [facility] [address] [place] [address] Dr. So Jorge GLYCOHEMOGLOBIN A1Con 2021 ADA RECOMMENDATION SEE BELOW Normal [facility] Comment on above: Result Comment: ADA RECOMMENDED LIMIT 4.0 - 6.0 ADA THERAPEUTIC TARGET < 7.0 ACTION SUGGESTED > 7.0 Performed By: #### A 1C #### [facility] [address] [place] [address] Dr. So Jorge Glucose [Mass/Vol] 103 mg/dL Normal [facility] Comment on above: Performed By: #### A 1C #### [facility] [address] [place] [address] Dr. So Jorge HbA1c (Bld) [Mass fraction] 5.2 % Normal 4.5-6.[address] [facility] Comment on above: Performed By: #### A 1C #### [facility] [address] [place] [address] Dr. So Jorge PROTIMEon 01-10-2022 INR Coag (PPP) [Relative time] 0.98 {INR} Normal [facility] Comment on above: Performed By: #### P TT, PT #### [facility] [address] [place] [address] Dr. So Jorge INR GUIDELINES SEE BELOW Normal [facility] Comment on above: Result Comment: JESUS RED INR: 2.0 - 3.0 CONDITIONS NOT LISTED BELOW 2.5 - 3.5 FOR PROSTHETIC HEART VALVE REPLACEMENT 2.5 - 3.5 RECURRENT THROMBOSIS Performed By: #### P TT, PT #### [facility] [address] [place] [address] Dr. So Jorge PT Coag (PPP) [Time] 10.6 s Normal 9.0-11.6 [facility] Comment on above: Performed By: #### P TT, PT #### [facility] [address] [place] [address] Dr. So Jorge PTTon 01-10-2022 aPTT Coag (Bld) [Time] 29.6 s Normal 22.3-36.2 [facility] Comment on above: Performed By: #### P TT, PT #### [facility] [address] [place] [address] Dr. So Jorge TSHon 01-10-2022 TSH 0.724 uIU/mL Normal 0.358-3.740 [facility] Comment on above: Performed By: #### T SH #### [facility] [address] [place] [address] Dr. So Jorge Encounters Encounter Date Encounter Type Care Provider Facility Start: 04-21-2023 End: 04-21-2023 ambulatory KRISHAN CAICEDO Not Available Start: 04-19-2023 End: 04-19-2023 Emergency department patient visit NO PCP NO PCP [facility] Start: 04-17-2023 End: 04-17-2023 ambulatory KRISHAN SASCHA Not Available Start: 03-28-2023 End: 03-28-2023 ambulatory KRISHAN SASCHA Not Available Start: 01-10-2022 End: 01-11-2022 ambulatory NONE LISTED REQUEST Facility: Start: 01-09-2022 End: 01-09-[address] KRISHAN CAICEDO Facility: Payers Date Payer Category Payer Medicaid [id number] 1995 Unknown [id number] 2.16.84 [id number] 1996 Unknown [id number] 2.16.84 [id number] 1996 Unknown [id number] 2.16.8 [id number] 1996 Unknown [id number] 2.16.84 [id number] 1996 Unknown [id number] 2.16.84 [id number] 1996 Unknown [id number] 2.16.84 [id number] 1959 Unknown [id number] Summary Purpose Family History No Family History Records FoundNo Family History Records FoundNo Family History Records Found Advance Directives No Advanced Directives Records FoundNo Advanced Directives Records FoundNo Advanced Directives Records Found Additional Source Comments INFORMATION SOURCE (unrecogn ized section and content) DATE CREATED AUTHOR 01/18/2022 [facility] DATE CREATED AUTHOR AUTHOR'S ORGANIZ ATION 04/20/2023 [facility] DATE CREATED AUTHOR AUTHOR'S ORGANIZ ATION 04/22/2023 [facility] FOR RECORDS PERTAINING TO PATIENTS WHO ARE [...] BE BASED ON THE PRIMARY CLINICAL RECORDS. [facility] [employer] provides no warranty or guarantee of the accuracy or completeness of information in this document.
== END 2023-04-21 06:31 | disposition home or self-care (01) ==
LOC: LAB 06:30
PROVIDERS: Visit Provider Obstetrics & Gynecology
DX: O03.9 Complete or unspecified spontaneous abortion without complication (principal)
CPT/HCPCS: 88300

== ENCOUNTER 2023-04-24 11:11 | Outpatient (OUT) | payer MEDICAID, SELFPAY ==
--- NOTE | 2023-04-24 11:13 | US_ITS ---
[address] [address] Patient Name: CATINA FRAGA MRN: [id number] date: 1995 Sex: F Assigned Patient Location: [facility] Current Patient Location: Accession/Order Number: [id number] Exam Date: 04/24/2023 11:15 Report Date: 04/25/2023 07:20 At the request of: KRISHAN CAICEDO Procedure: US pelvis transvaginal EXAMINATION: US pelvis transvaginal HISTORY: Miscarriage, rule out products of conception COMPARISON: No relevant comparison available. TECHNIQUE: Transabdominal and/or transvaginal sonographic examination was performed as indicated by examination type. FINDINGS: UTERUS: Normal size and appearance. Uterus size: 8.5 x 6.6 x 3.7 cm ENDOMETRIUM: Normal homogeneous appearance. Endometrial thickness: 6 mm RIGHT OVARY: Not evaluated. LEFT OVARY: Not evaluated. CUL-DE-SAC: Unremarkable. No significant free fluid. BLADDER: Unremarkable. OTHER: None. US/US pelvis transvaginal IMPRESSION: 1. No retained products of conception within the endometrial cavity. Normal appearance of uterus and endometrium. 2. Technologist notes that due to patient distress at time of imaging the ovaries were not evaluated. Electronically authenticated by: CHAUNCEY GRESHAM Date: 04/25/2023 07:20
== END 2023-04-24 11:12 | disposition home or self-care (01) ==
LOC: NOMS 11:11
PROVIDERS: Visit Provider Obstetrics & Gynecology
DX: O03.9 Complete or unspecified spontaneous abortion without complication (principal)
CPT/HCPCS: 76830